=== PATIENT | male | born 1940 | race Caucasian/White ===

== ENCOUNTER 2021-12-14 07:57 | Emergency (ER) | payer MEDICARE ==
[~2021-12-14] VITALS: Ht 172.7 cm; Wt 67.1 kg
[2021-12-14] VITALS (7 sets, daily range): BP systolic 107–145; BP diastolic 70–95
[2021-12-14 08:48] LABS: HEMATOCRIT 38.6 % (39.0-50.0); HEMOGLOBIN 13.1 g/dl (14.0-18.0); IMMATURE GRANULOCYTES 0.4 % (0.0-5.0); MEAN CELL VOLUME 88.5 fL CALC (80.0-100.0); MEAN CORPUSCULAR HGB CONC 33.9 g/dL CAL (32.0-36.0); NEUT# 8.3 thou/uL (1.82-7.42); RED BLOOD COUNT 4.36 mill/uL (4.70-6.10); RED CELL DISTRI WIDTH 13.9 % (11.5-15.5)
[2021-12-14 09:18] LABS: ALBUMIN 4.4 g/dL (3.2-5.0); ALKALINE PHOSPHATASE 151 u/l (38-126); BILIRUBIN, TOTAL 2.6 mg/dL (0.0-1.4); BUN 18 mg/dL (8-23); BUN/CREATININE RATIO 16 (12-20 (CALC)); CARBON DIOXIDE 25 mmol/l (22-30); CHLORIDE 100 mmol/l (95-108); CREATININE 1.1 mg/dL (0.7-1.3); GFR FOR AFR.AMER. > 60 ML/MIN (>=60 (CALC)); GFR OTHER RACES > 60 ML/MIN (>=60 (CALC)); SGOT/AST 31 u/l (19-48); SODIUM 137 mmol/l (137-146); TOTAL PROTEIN 8.4 g/dL (6.3-8.2)
[2021-12-14 09:20] LABS: ANION GAP 16 (6-22 (CALC)); POTASSIUM 3.8 mmol/l (3.5-5.1)
[2021-12-14 09:29] LABS: MYOGLOBIN 35 ng/mL (0 - 121)
[2021-12-14 10:14] LABS: URINE BILIRUBIN - DIPSTICK NEGATIVE (NEGATIVE); URINE BLOOD DIPSTICK TRACE-INTACT (NEGATIVE); URINE GLUCOSE - DIPSTICK NEGATIVE (NEGATIVE); URINE KETONE NEGATIVE (NEGATIVE); URINE PROTEIN - DIPSTICK NEGATIVE (NEG-TRACE); URINE SPECIFIC GRAVITY <=1.005; URINE UROBILINOGEN - DIPSTICK 0.2 E.U./dL (0.2)
[2021-12-14 10:16] LABS: URINE COLOR DK. YELLOW; URINE LEUK ESTERASE LARGE (NEGATIVE); URINE NITRITE - DIPSTICK POSITIVE (Negative)
[2021-12-14 10:25] LABS: URINE BACTERIA MANY hpf; URINE EPITHELIAL CELLS MANY EPI/hpf (0-FEW); URINE RBC 0-2 RBC/hpf (0-5); URINE WBC 20-50 WBC/hpf (0-5)
[2021-12-14] MEDS ORDERED: KEFLEX500 MG PO (10:28)
== END 2021-12-14 10:40 | disposition home or self-care (01) ==
LOC: ED 07:57
PROVIDERS: Emergency Medicine
DX: N39.0 Urinary tract infection, site not specified (principal); B96.20 Unspecified Escherichia coli [E. coli] as the cause of diseases classified elsewhere; I10 Essential (primary) hypertension; Z20.822 Contact with and (suspected) exposure to COVID-19
CPT/HCPCS: Q9967

== ENCOUNTER 2022-03-31 12:30 | Emergency (ER) | payer MEDICARE ==
[2022-03-31] VITALS (11 sets, daily range): BP systolic 148–217; BP diastolic 86–152
[~2022-03-31] VITALS: Ht 172.7 cm; Wt 77.7 kg
[~2022-03-31 12:30] MED LIST: KEFLEX500 MG PO
[2022-03-31] MEDS ORDERED: NAPROXEN500 MG PO (16:22)
== END 2022-03-31 16:40 | disposition home or self-care (01) ==
LOC: ED 12:30
DX: M25.511 Pain in right shoulder (principal); I10 Essential (primary) hypertension

== ENCOUNTER 2024-04-05 12:15 | Emergency (ER) | payer MEDICARE ==
[~2024-04-05] VITALS: Ht 172.7 cm; Wt 72.0 kg
[~2024-04-05 12:15] MED LIST changes: +NAPROXEN500 MG PO
[2024-04-05 13:00] VITALS: BP 115/84
[2024-04-05 13:17] VITALS: BP 40/25
== END 2024-04-05 13:21 | disposition home or self-care (01) ==
LOC: ED 12:15
DX: Z43.6 Encounter for attention to other artificial openings of urinary tract (principal); C80.1 Malignant (primary) neoplasm, unspecified; I10 Essential (primary) hypertension

== ENCOUNTER 2024-04-25 14:52 | Emergency (ER) | payer MEDICARE ==
[2024-04-25] VITALS (14 sets, daily range): BP systolic 93–130; BP diastolic 51–84
[~2024-04-25] VITALS: Ht 172.7 cm; Wt 68.4 kg
[2024-04-25 15:41] LABS: BASO% 0.2 % (0-3); HEMATOCRIT 35.2 % (39.0-50.0); HEMOGLOBIN 12.2 g/dl (14.0-18.0); IMMATURE GRANULOCYTES 1.7 % (0.0-5.0); LYMPH% 2.1 % (15-41); MEAN CORPUSCULAR HGB 30.5 pG CALC (26.0-32.0); MEAN CORPUSCULAR HGB CONC 34.7 g/dL CAL (32.0-36.0); MONO% 1.6 % (2-13); NEUT# 25.07 thou/uL (1.82-7.42); NEUT% 94.4 % (42-76)
[2024-04-25] MEDS ORDERED: AMLODIPINE BESYL5 MG PO (15:41)
[2024-04-25] MEDS ORDERED: FUROSEMIDE20 MG PO (15:41)
[2024-04-25] MEDS ORDERED: LEVOTHYROXIN25 MC1 PO (15:41)
[2024-04-25] MEDS ORDERED: MELATONIN3 M1 PO (15:42)
[2024-04-25] MEDS ORDERED: cefTRIAXone SODIUM 2 GM in SODIUM CHLORIDE 0.9% 100 ML IV ONE (15:50)
[2024-04-25] MEDS ORDERED: MORPHINE SULFATE 4 MG/ML VIAL IV ONE (15:50)
[2024-04-25] MEDS ORDERED: SODIUM CHLORIDE 0.9% 1,000 ML IV ONE ×2 (15:50→17:40)
[2024-04-25 15:51] LABS: ALBUMIN 3.7 g/dL (3.2-5.0); TOTAL PROTEIN 7.8 g/dL (6.3-8.2)
[2024-04-25] MEDS ORDERED: ONDANSETRON HCl 4 MG/2 ML SDV IV ONE (15:55)
[2024-04-25] MEDS ORDERED: AZITHROMYCIN 500 MG in SODIUM CHLORIDE 0.9% 500 ML IV ONE (15:55)
[2024-04-25 16:02] LABS: BILIRUBIN, TOTAL 3.7 mg/dL (0.2-1.3); CREATININE 9.9 mg/dL (0.7-1.3); POTASSIUM 4.8 mmol/l (3.5-5.1)
== END 2024-04-25 18:16 | disposition short-term general hospital (02) ==
LOC: ED 14:52
PROVIDERS: Family Medicine
DX: A41.9 Sepsis, unspecified organism (principal); J18.9 Pneumonia, unspecified organism; N17.9 Acute kidney failure, unspecified; I12.9 Hypertensive chronic kidney disease with stage 1 through stage 4 chronic kidney disease, or unspecified chronic kidney disease; N18.9 Chronic kidney disease, unspecified; E03.9 Hypothyroidism, unspecified; C61 Malignant neoplasm of prostate; C68.8 Malignant neoplasm of overlapping sites of urinary organs; Z93.6 Other artificial openings of urinary tract status; Z20.822 Contact with and (suspected) exposure to COVID-19
CPT/HCPCS: J0456; J0696; J2405